=== PATIENT | male | born 1980 | race African-American/Black ===

== ENCOUNTER 2020-07-22 04:22 | Day surgery (SDC) | payer BC, OTHER ==
[2020-07-21 09:17] VITALS: BMI 39.0
[2020-07-22] MEDS ORDERED: MIDAZOLAM HCL 2 MG/2 ML SINGLE DOSE VIAL ONE ×3 (07:46)
[2020-07-22] MEDS ORDERED: PROPOFOL 20 ML ONE ×3 (07:50→08:16)
[2020-07-22] MEDS ORDERED: SUCCINYLCHOLINE CHLORIDE 200 MG/10 ML SYRINGE ONE (07:50)
[2020-07-22] MEDS ORDERED: ceFAZolin SODIUM 1 GM VIAL IVPB ONE (08:25)
[2020-07-22] MEDS ORDERED: LABETALOL HCL 5 MG/1 ML (100MG/20 ML VIAL) ONE (09:15)
[2020-07-22] MEDS ORDERED: ONDANSETRON 4 MG/2 ML VIAL IVPUSH PRN (10:25)
[2020-07-22] MEDS ORDERED: oxyCODONE HCL 5 MG TABLET PO PRN ×2 (10:25)
[2020-07-22] MEDS ORDERED: LACTATED RINGERS SOLUTION 1,000 ML IV SCH (10:30)
[2020-07-22 16:01] VITALS: BP 140/90; PULSE 60; TEMP 97.4
== END 2020-07-22 12:45 | disposition home or self-care (01) ==
LOC: JASU-SURG 04:22
PROVIDERS: ATTEND Orthopaedic Surgery
PROC: 0QSK04Z Reposition Left Fibula with Internal Fixation Device, Open Approach (ICD-10-PCS; principal; 2020-07-22 08:00)
DX: S82.62XA Displaced fracture of lateral malleolus of left fibula, initial encounter for closed fracture (principal); S93.439A Sprain of tibiofibular ligament of unspecified ankle, initial encounter; Y99.9 Unspecified external cause status
CPT/HCPCS: 27792; 27829; C1713; 76000-TC-FY; 94760; 97116-GP